=== PATIENT | male | born 1965 | race Two or more races ===

== ENCOUNTER 2020-04-29 22:51 | Emergency (ER) | payer MEDICARE, OTHER ==
[~2020-04-29] VITALS: Ht 165.1 cm; Wt 77.1 kg
[2020-04-29 23:44] VITALS: BP 120/87
[2020-04-29] MEDS ORDERED: ACETAMINOPHEN 325 MG TAB PO ONE (23:45)
== END 2020-04-30 00:35 ==
LOC: EDBD 22:51 → ER 22:55
DX: R07.89 Other chest pain (principal); V43.52XA Car driver injured in collision with other type car in traffic accident, initial encounter; Y93.89 Activity, other specified; Y92.488 Other paved roadways as the place of occurrence of the external cause; Y99.8 Other external cause status